=== PATIENT | female | born 1975 | race Caucasian/White ===

== ENCOUNTER 2021-04-08 03:29 | Emergency (ER) | payer OTHER ==
[~2021-04-08] VITALS: Ht 170.2 cm; Wt 61.2 kg
[2021-04-08 03:35] VITALS: BP 111/82
[2021-04-08] MEDS ORDERED: KETOROLAC 30 MG/ML VIAL IM ONE (05:55)
[2021-04-08] MEDS ORDERED: diazePAM 5 MG TAB PO ONE (05:55)
[2021-04-08] MEDS ORDERED: HYDR-5080 PO (07:24)
[2021-04-08] MEDS ORDERED: IBUP-2230 PO (07:24)
[2021-04-08 07:46] VITALS: BP 111/82
== END 2021-04-08 07:57 | disposition home or self-care (01) ==
LOC: MED 03:29
DX: M43.6 Torticollis (principal); R51.9 Headache, unspecified; Z79.899 Other long term (current) drug therapy
CPT/HCPCS: 96372; 99283; J1885

== ENCOUNTER 2022-08-13 03:55 | Emergency (ER) | payer OTHER ==
[~2022-08-13] VITALS: Ht 170.2 cm; Wt 66.2 kg
[~2022-08-13 03:55] MED LIST: HYDR-5080 PO; IBUP-2230 PO
[2022-08-13 04:11] VITALS: BP 141/87
--- NOTE | 2022-08-13 04:16 | NUR ---
GILMA ASSESED PT IN TRIAGE.
[2022-08-13] MEDS ORDERED: KETOROLAC 60 MG/2 ML VIAL IM ONE (04:20)
[2022-08-13] MEDS ORDERED: MORPHINE SULFATE 4 MG/ML SYR IM ONE (04:20)
--- NOTE | 2022-08-13 04:37 | NUR ---
PATIENT MEDICATED PER ORDERS AND TAKEN TO [facility]
[2022-08-13] MEDS ORDERED: NAPR-54 PO (06:12)
[2022-08-13 06:15] VITALS: BP 141/87
== END 2022-08-13 06:15 | disposition home or self-care (01) ==
LOC: MED 03:55
DX: M43.6 Torticollis (principal); M54.2 Cervicalgia; Z79.899 Other long term (current) drug therapy
CPT/HCPCS: 81025; 96372; 99284; J1885; J2270

== ENCOUNTER 2023-12-08 17:43 | Emergency (ER) | payer OTHER ==
[~2023-12-08] VITALS: Ht 170.2 cm; Wt 63.5 kg
[~2023-12-08 17:43] MED LIST changes: +NAPR-54 PO
[2023-12-08 17:51] VITALS: BP 148/88; PULSE 75; RESP 16; TEMP 97.8; O2SAT 100
[2023-12-08 18:00] VITALS: O2SAT 100
[2023-12-08 18:15] VITALS: TEMP 97.8
[2023-12-08 18:29] LABS: APPEARANCE,URINE CLEAR (CLEAR); BILIRUBIN,URINE NEGATIVE (NEGATIVE); BLOOD, URINE 1+ (NEGATIVE); COLOR,URINE YELLOW (YELLOW); LEUKOCYTE ESTERASE ,URINE 1+ (NEGATIVE); NITRITE, URINE POSITIVE (NEGATIVE); PROTEIN,URINE NEGATIVE (NEGATIVE); UGLUCOSE NEGATIVE (NEGATIVE); UROBILINOGEN,URINE 0.2 EU/dL (0.2 - 1)
[2023-12-08 18:42] LABS: BACTERIA,URINE >30 (MANY) /HPF (None Seen); MUCUS,URINE 1+ /LPF (None Seen); SQUAMOUS EPITHELIAL CELL,UR 4-10 (MOD) /LPF (0-3 (FEW))
[2023-12-08] MEDS ORDERED: diphenhydrAMINE 50 MG/ML VIAL IVP ONE (18:50)
[2023-12-08] MEDS ORDERED: NACL 0.9% 1,000 ML IV ONE (18:50)
[2023-12-08] MEDS ORDERED: DEXAMETHASONE 10 MG/ML VIAL IVP ONE (18:50)
[2023-12-08] MEDS ORDERED: METOCLOPRAMIDE 10 MG/2 ML INJ VIAL IVP ONE (18:50)
[2023-12-08 19:25] LABS: BASOPHILS % (AUTO) 0.4 % (0.0-2.0); EOSINOPHILS # (AUTO) 0.2 K/uL (0-0.4); EOSINOPHILS % (AUTO) 2.6 % (0.0-4.0); HEMATOCRIT 37.2 % (36-48); HEMOGLOBIN 12.7 g/dL (12.0-16.0); LYMPHOCYTES # (AUTO) 1.5 K/uL (2.5-16.5); LYMPHOCYTES % (AUTO) 22.4 % (20.5-51.1); MEAN CORPUSCULAR HEMOGLOBIN 29 pg (27-31); MEAN CORPUSCULAR HGB CONC 34 g/dL (33-37); MEAN CORPUSCULAR VOLUME 83.6 fL (80-94); MONOCYTES # (AUTO) 0.5 K/uL (0.8-1.0); MONOCYTES % (AUTO) 7.8 % (1.7-9.3); NEUTROPHILS # (AUTO) 4.6 K/uL (1.8-7.7); NEUTROPHILS % (AUTO) 66.8 % (42.2-75.2); PLATELET COUNT (AUTO) 295 K/uL (140-450); RED BLOOD CELL COUNT(AUTO) 4.45 MIL/uL (4.20-5.40); RED CELL DISTRIBUTION WIDTH 13.8 % (11.6-13.7); WHITE BLOOD COUNT (AUTO) 6.8 K/uL (4.8-10.8)
[2023-12-08 19:32] LABS: ANION GAP 7.4 (8-16); CALCIUM 9.3 mg/dL (8.5-10.1); CREATININE 0.8 mg/dL (0.6-1.3); POTASSIUM 3.4 mmol/L (3.5-5.1)
[2023-12-08 19:45] VITALS: O2SAT 100
[2023-12-08] MEDS ORDERED: DEXAMETHASONE 10 MG/ML VIAL ONE (20:24)
[2023-12-08] MEDS ORDERED: cefTRIAXone 1,000 MG VIAL ONE (20:24)
[2023-12-08] MEDS ORDERED: diphenhydrAMINE 50 MG/ML VIAL ONE (20:25)
[2023-12-08] MEDS ORDERED: METOCLOPRAMIDE 10 MG/2 ML INJ VIAL ONE (20:26)
[2023-12-08] MEDS ORDERED: HYDROcodone/APAP 5/325 MG 1 TAB TAB PO ONE (20:35)
[2023-12-08] MEDS ORDERED: KETOROLAC 30 MG/ML VIAL IVP ONE (20:35)
[2023-12-08] MEDS ORDERED: PYR100 PO (21:44)
[2023-12-08] MEDS ORDERED: ACET-9496 PO (21:44)
[2023-12-08] MEDS ORDERED: CEPH-588 PO (21:44)
[2023-12-08 22:10] VITALS: BP 119/75; PULSE 71; RESP 16; O2SAT 99
== END 2023-12-08 22:10 | disposition home or self-care (01) ==
LOC: MED 17:43
DX: G43.909 Migraine, unspecified, not intractable, without status migrainosus (principal); N39.0 Urinary tract infection, site not specified; Z79.899 Other long term (current) drug therapy
CPT/HCPCS: 36415; 80048; 81001; 81025; 83605; 85025; 87040; 87086; 96365; 96375; 99285; J0696; J1100; J1200; J1885; J2765; J7030